=== PATIENT | female | born 1985 | race Two or more races ===

== ENCOUNTER 2016-11-24 13:51 | Emergency (ER) | payer SELFPAY ==
[~2016-11-24] VITALS: Ht 162.6 cm; Wt 70.0 kg
[2016-11-24] MEDS ORDERED: MORPHINE SULFATE 4 MG/ML CPJ (NOT FOR IM USE) IV STA (15:08)
[2016-11-24] MEDS ORDERED: SODIUM CHLORIDE 0.9% 1,000 ML IV ONE (15:08)
[2016-11-24] MEDS ORDERED: ONDANSETRON HCL 4MG/2ML VIAL IV STA (15:08)
[2016-11-24 15:22] LABS: CLARITY URINE CLOUDY (CLEAR); COLOR URINE YELLOW (YELLOW); GLUCOSE URINE NEGATIVE (NEGATIVE); KETONES URINE NEGATIVE (NEGATIVE); LEUKOCYTE ESTERASE URINE 3+ (NEGATIVE); NITRITE URINE POSITIVE (NEGATIVE); OCCULT BLOOD URINE 2+ (NEGATIVE); PROTEIN URINE 2+ (NEGATIVE); SPECIFIC GRAVITY URINE 1.013 (1.005-1.030); UROBILINOGEN URINE 0.2 E.U./dL (0.2-1.0)
[2016-11-24 15:44] LABS: BASOPHILS % 0.9 % (0.0-2.0); EOSINOPHILS % 0.4 % (0.0-5.0); HEMOGLOBIN. 13.1 g/dL (12.0-16.0); LYMPHOCYTES % 32.5 % (20.0-50.0); MEAN CORPUSCULAR HEMOGLOBIN 27.2 pg (28.0-32.0); MEAN CORPUSCULAR VOLUME 81.1 fL (81.0-99.0); MEAN PLATELET VOLUME 9.3 fl (7.4-10.4); MONOCYTES % 7.1 % (2.0-8.0); NEUTROPHILS % 59.1 % (40.0-76.0); PLATELET 217 x1000/uL (130-400); RED BLOOD CELL COUNT 4.81 mill/uL (4.2-5.4)
[2016-11-24 15:55] LABS: PROTHROMBIN TIME 10.8 sec
[2016-11-24 16:03] LABS: CARBON DIOXIDE 27 mEq/L (21-32); CHLORIDE 104 mEq/L (98-107)
[2016-11-24] MEDS ORDERED: POTASSIUM CHLORIDE 20MEQ TABLET SR PO ONE (16:15)
[2016-11-24 16:18] LABS: HCG SCREEN NEGATIVE
[2016-11-24 17:12] VITALS: BP 121/76
== END 2016-11-24 17:12 | disposition home or self-care (01) ==
LOC: ER 16:20
DX: N39.0 Urinary tract infection, site not specified (principal)
CPT/HCPCS: 36415; 80053; 81001; 83690; 84703; 85025; 85610; 96361; 96374; 96375; 99284; J2270; J2405; J7030

== ENCOUNTER 2016-11-26 13:36 | Emergency (ER) | payer SELFPAY ==
[~2016-11-26] VITALS: Ht 157.5 cm; Wt 91.1 kg
[2016-11-26] MEDS ORDERED: ACETAMINOPHEN 325MG TABLET PO STA (17:33)
[2016-11-26] MEDS ORDERED: SODIUM CHLORIDE 0.9% 1,000 ML IV ONE (17:33)
[2016-11-26 18:07] LABS: BASOPHILS % 0.2 % (0.0-2.0); HEMATOCRIT. 35.9 % (36.0-48.0); HEMOGLOBIN. 12.1 g/dL (12.0-16.0); MEAN CORPUSCULAR HEMOGLOBIN 27.3 pg (28.0-32.0); MEAN CORPUSCULAR VOLUME 81.1 fL (81.0-99.0); MEAN PLATELET VOLUME 9.5 fl (7.4-10.4); MONOCYTES % 11.3 % (2.0-8.0); NEUTROPHILS % 69.5 % (40.0-76.0); PLATELET 189 x1000/uL (130-400); RED BLOOD CELL COUNT 4.43 mill/uL (4.2-5.4); RED CELL DISTRIBUTION WIDTH 13.7 % (11.6-14.6)
[2016-11-26 18:12] LABS: CHLORIDE 103 mEq/L (98-107)
[2016-11-26 18:14] LABS: INR 1.1; PROTHROMBIN TIME 11.2 sec
[2016-11-26 18:15] LABS: CARBON DIOXIDE 26 mEq/L (21-32)
[2016-11-26 18:33] LABS: CLARITY URINE CLOUDY (CLEAR); COLOR URINE YELLOW (YELLOW); GLUCOSE URINE NEGATIVE (NEGATIVE); KETONES URINE 3+ (NEGATIVE); LEUKOCYTE ESTERASE URINE TRACE (NEGATIVE); NITRITE URINE NEGATIVE (NEGATIVE); OCCULT BLOOD URINE NEGATIVE (NEGATIVE); PH URINE 5.5 (4.5-8.0); PROTEIN URINE NEGATIVE (NEGATIVE); SPECIFIC GRAVITY URINE 1.012 (1.005-1.030)
[2016-11-26] MEDS ORDERED: CEFTRIAXONE 1 G PREMIX 50 ML IV ONE (19:30)
[2016-11-26 19:33] VITALS: BP 104/55
== END 2016-11-26 20:52 | disposition home or self-care (01) ==
LOC: ER 17:38
DX: N39.0 Urinary tract infection, site not specified (principal); H60.90 Unspecified otitis externa, unspecified ear
CPT/HCPCS: 36415; 71010; 80053; 81001; 83690; 85025; 85610; 96361; 96365; 99285; J0696; J7030; Z7610